=== PATIENT | male | born 1990 | race Caucasian/White ===

== ENCOUNTER 2017-02-16 09:35 | Emergency (ER) | payer MEDICAID ==
[2017-02-16 09:40] VITALS: BP 139/70; PULSE 80; RESP 16; TEMP 97.5; O2SAT 96
--- NOTE | 2017-02-16 10:23 | EDPHY ---
H & P Time Seen by Provider: 02/16/17 09:42 HPI/ROS: CHIEF COMPLAINT: Fall, dental injury HISTORY OF PRESENT ILLNESS: 26-year-old male presents to the emergency department after he fell last evening around 5:00 p.m. and hit his mouth on a by [place]. He did not lose consciousness. He denies loss of consciousness. Denies headache. Denies neck or back pain. Denies chest pain or difficulty breathing. He is complaining only of chipped right front tooth. He was trying to get in to see a dentist but was unsuccessful. Denies dysphagia. Denies jaw pain. REVIEW OF SYSTEMS: Constitutional: No fever, no chills. Eyes: No double or blurry vision. ENT: No sore throat. Respiratory: No cough, no shortness of breath. Cardiac: No chest pain. Gastrointestinal: No abdominal pain, vomiting or diarrhea. Genitourinary: No dysuria. Musculoskeletal: No neck or back pain. Skin: No rashes. Neurological: No headache. Past Medical/Surgical History: Negative Social History: Single Smoking Status: Heavy smoker Physical Exam: General Appearance: Alert, no distress. Mentating normally and answering questions appropriately. Eyes: Pupils equal and round. Extraocular motions are all intact. ENT: Mouth: Mucous membranes moist. The patient has a chipped right front tooth, #8, . There is no active bleeding noted. Nontender to palpate along the mandible. No malocclusion. No other dental injury noted. Very superficial healing laceration to the inside of the buccal mucosa of the upper lip. Respiratory: No wheezing, rhonchi, or rales, lungs are clear to auscultation. Cardiovascular: Regular rate and rhythm. Gastrointestinal: Abdomen is soft and nontender, no masses, no rebound or guarding, bowel sounds normal. Neurological: Alert and oriented x 3, cranial nerves II through XII grossly intact Skin: Warm and dry, no rashes. Musculoskeletal: Nontender to palpate along the cervical, thoracic or lumbar spine. Neck is supple. Extremities: Full range of motion and no peripheral edema. Psychiatric: Patient is oriented X 3, there is no agitation. Constitutional: Initial Vital Signs Temperature (C) 36.4 C 02/16/17 09:36 Heart Rate 80 02/16/17 09:36 Respiratory Rate 16 02/16/17 09:36 Blood Pressure 139/70 H 02/16/17 09:36 O2 Sat (%) 96 02/16/17 09:36 O2 Delivery Mode Room Air Allergies/Adverse Reactions: No Known Allergies Allergy (Unverified 02/16/17 09:40) Home Medications: Medication Instructions Recorded Penicillin V Potassium 500 mg PO TID #30 tablet 02/16/17 Medical Decision Making ED Course/Re-evaluation: 26-year-old male presents with acute dental trauma. I did try calling the dental aid emergency number tried to make an appointment and left information. I also gave him the phone number for dental aid. He will be started on penicillin to prevent infection and was encouraged to follow up with a dentist as soon as possible. Patient was comfortable with this plan. I do not think he needs any emergent intervention. He has no dentin exposure. There is no active bleeding noted. Differential Diagnosis: Including but not limited to dental fracture, mandible fracture, contusion Departure - Departure Disposition: Home, Routine, Self-Care Clinical Impression: Fractured tooth Qualifiers: Encounter type: initial encounter Fracture type: closed Qualified Code(s): S02.5XXA - Fracture of tooth (traumatic), initial encounter for closed fracture Condition: Good Instructions: Acute Dental Trauma (ED) Additional Instructions: You need to follow up with a dentist CLAUDIA. Go to [facility] to make an appointment. Penicillin as directed to prevent infection. Ibuprofen 600mg every 8 hours for pain as directed. Referrals: [facility] [Outside] - As per Instructions [facility] [Outside] - As per Instructions Dental [facility] [Outside] - As per Instructions Dental [facility] [Outside] - As per Instructions Dental [facility] [Outside] - As per Instructions Prescriptions: Penicillin V Potassium 500 mg PO TID #30 tablet
== END 2017-02-16 10:33 | disposition home or self-care (01) ==
DX: S02.5XXA Fracture of tooth (traumatic), initial encounter for closed fracture (principal); F17.200 Nicotine dependence, unspecified, uncomplicated; W01.198A Fall on same level from slipping, tripping and stumbling with subsequent striking against other object, initial encounter

== ENCOUNTER 2017-05-06 11:27 | Emergency (ER) | payer SELFPAY ==
[2017-05-06 11:37] VITALS: RESP 16; TEMP 97.9
--- NOTE | 2017-05-06 13:07 | EDPHY ---
H & P Time Seen by Provider: 05/06/17 12:02 HPI/ROS: CHIEF COMPLAINT: Right wrist pain HISTORY OF PRESENT ILLNESS: Patient is a 26-year-old male who presents emergency department after slipping while ice fishing last night. He landed on his right hand and chin. He states he had the wind knocked out of me. At this time he has no jaw pain. No malocclusion. No chest pain or shortness of breath. No neck or back pain. Patient has isolated right wrist pain. This is on the lateral aspect of his wrist. He has noted swelling. He denies numbness or tingling.. REVIEW OF SYSTEMS: Negative Past Medical/Surgical History: Previous boxer's fracture Smoking Status: Heavy smoker Physical Exam: Vitals noted General Appearance: Alert and no distress. Head: Pupils equal. Normal. No chin tenderness palpation. No malocclusion. Respiratory: No respiratory distress. Cardiac: regular rate and rhythm. Extremities: Patient has right wrist snuffbox tenderness to palpation. No crepitus. Mild swelling. Neurovascular intact distally. Skin: No rashes or lesions. Neuro: Alert. Normal mood and affect. Constitutional: Initial Vital Signs Temperature (C) 36.6 C 05/06/17 11:34 Heart Rate 86 05/06/17 11:34 Respiratory Rate 16 05/06/17 11:34 Blood Pressure 119/98 H 05/06/17 11:34 O2 Sat (%) 96 05/06/17 11:34 O2 Delivery Mode Room Air Allergies/Adverse Reactions: No Known Allergies Allergy (Unverified 02/16/17 09:40) Medical Decision Making - Diagnostics Imaging Results: Imaging Impressions Wrist X-Ray 05/06/17 11:39 Impression: 1. Acute midpole navicular fracture. 2. Probable old fifth metacarpal fracture with a retained angular deformity and diaphyseal foreshortening. ED Course/Re-evaluation: In the emergency department I discussed possible etiologies with the patient. An x-ray was ordered. Right wrist x-ray: Please refer the dictated report. Patient has navicular fracture. Old boxer fracture. I discussed the results with the patient. I answered all his questions. He is placed in a thumb spica Ortho Glass splint. Neurovascular intact distally post splint placement. Patient was instructed on importance of wearing his splint following up with Orthopedics. Differential Diagnosis: My differential includes but is not limited to fracture, dislocation, foreign body, sprain, strain, jaw fracture Departure - Departure Disposition: Home, Routine, Self-Care Clinical Impression: Fx navicular, wrist-closed Qualifiers: Encounter type: initial encounter Scaphoid bone location: unspecified portion of scaphoid Fracture alignment: nondisplaced Laterality: right Qualified Code(s) : S62.001A - Unspecified fracture of navicular [scaphoid] bone of right wrist, initial encounter for closed fracture Condition: Good Instructions: Wrist Fracture in Adults (ED) Additional Instructions: You have a navicular bone fracture. You need to wear your Ortho Glass splint. You need close follow-up with Orthopedics. Do not take your splint off. Referrals: Chava Hook MD [Medical Doctor] - 5-7 days, call for appt.
[2017-05-06] MEDS ORDERED: HYDROCODONE/APAP 5/325 TAB PO ONE (13:10)
[2017-05-06 13:32] VITALS: BP 126/86; PULSE 76; O2SAT 94
== END 2017-05-06 13:32 | disposition home or self-care (01) ==
DX: S62.001A Unspecified fracture of navicular [scaphoid] bone of right wrist, initial encounter for closed fracture (principal); F17.200 Nicotine dependence, unspecified, uncomplicated; W01.0XXA Fall on same level from slipping, tripping and stumbling without subsequent striking against object, initial encounter
CPT/HCPCS: A4565